=== PATIENT | female | born 1960 | race African-American/Black ===

== ENCOUNTER 2019-07-21 14:38 | Emergency (ER) | payer OTHER ==
[~2019-07-21] VITALS: Ht 175.3 cm; Wt 81.7 kg
[~2019-07-21 14:38] MED LIST: CLONIDINE0.1 PO; NORCO 5-325 TA1 EACH PO; PRINIVIL20 MG PO; PROAIR HFA8.5 GM INH; TESSALON PERLE100 MG PO
--- NOTE | 2019-07-21 15:24 | EKG ---
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
[2019-07-21 16:27] LABS: ABSOLUTE NEUTROPHILS 5.8 thou/uL (1.4-8.2); BASOPHILS 1.4 % (0.0-2.0); EOSINOPHILS 2.5 % (0.0-3.0); HEMATOCRIT 38.8 % (37.0-47.0); HEMOGLOBIN 12.7 gm/dL (12.0-15.0); LYMPHOCYTES 20.6 % (24.0-44.0); MCH 28.3 pg (26.0-34.0); MCHC 32.7 g/dL (28.0-37.0); MCV 86.5 fL (80.0-100.0); MONOCYTES 8.9 % (1.0-8.0); PLATELET COUNT 293 thou/uL (150-400); POLYS 66.6 % (36.0-66.0); RBC 4.49 mil/uL (4.20-5.00); RDW 16.4 % (10.5-14.5); WBC 8.8 thou/uL (4.0-11.0)
[2019-07-21 16:35] LABS: ANION GAP 10 mmol/L (7-16); BUN 25 mg/dL (7-18); CALCIUM 10.4 mg/dL (8.5-10.1); CHLORIDE 97 mmol/L (98-107); CO2 29 mmol/L (21-32); CREATININE 4.1 mg/dL (0.6-1.0); GLUCOSE 78 mg/dL (74-106); POTASSIUM 3.6 mmol/L (3.5-5.1); SODIUM 136 mmol/L (136-145)
[2019-07-21 16:44] LABS: TROPONIN-I <0.06 ng/mL (<0.06)
[2019-07-21 17:30] VITALS: BP 131/78
[2019-07-21] MEDS ORDERED: MOBIC15 MG PO (17:36)
== END 2019-07-21 17:30 | disposition home or self-care (01) ==
LOC: ER 14:38
PROVIDERS: Emergency Medicine
DX: M54.5 Low back pain (principal); I10 Essential (primary) hypertension; K21.9 Gastro-esophageal reflux disease without esophagitis; F17.210 Nicotine dependence, cigarettes, uncomplicated; Z88.6 Allergy status to analgesic agent